=== PATIENT | female | born 1995 | race African-American/Black ===

== ENCOUNTER 2018-04-20 07:58 | Emergency (ER) | payer BC, OTHER ==
[~2018-04-20] VITALS: Ht 165.1 cm; Wt 60.8 kg
[2018-04-20 08:08] VITALS: BP 135/74
[2018-04-20] MEDS ORDERED: NAPROXEN 250 MG TABLET ONE (08:13)
[2018-04-20] MEDS: NAPROXEN 500 MG TABLET PO SCH ×5 (08:16→08:28)
== END 2018-04-20 08:30 | disposition home or self-care (01) ==
LOC: ER 08:02
DX: N76.4 Abscess of vulva (principal); R23.4 Changes in skin texture; Z88.2 Allergy status to sulfonamides

== ENCOUNTER 2018-04-22 10:11 | Emergency (ER) | payer BC ==
[~2018-04-22] VITALS: Ht 162.6 cm; Wt 69.9 kg
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
[2018-04-22] MEDS ORDERED: LIDOCAINE 0.5%-EPI 1:200,000 50 ML VIAL ONE (11:28)
--- NOTE | 2018-04-22 11:58 | NUR ---
PATIENT S/P I&D, Patient discharged to home in stable condition. Written and verbal after care instructions given. Patient verbalizes understanding of instruction.
[2018-04-22 11:59] VITALS: BP 126/76
== END 2018-04-22 11:59 | disposition home or self-care (01) ==
LOC: ER 10:11
DX: K61.0 Anal abscess (principal); Z88.2 Allergy status to sulfonamides; Z88.3 Allergy status to other anti-infective agents
CPT/HCPCS: A6402; A6407; J3490

== ENCOUNTER 2018-04-26 10:22 | Emergency (ER) | payer BC ==
[~2018-04-26] VITALS: Ht 162.6 cm; Wt 68.5 kg
[2018-04-26 10:41] VITALS: BP 119/72
== END 2018-04-26 11:23 | disposition home or self-care (01) ==
LOC: ER 10:25
DX: K61.0 Anal abscess (principal); Z88.2 Allergy status to sulfonamides; Z88.1 Allergy status to other antibiotic agents
CPT/HCPCS: 99281; A4606; Z7502